=== PATIENT | female | born 1950 | race Caucasian/White ===

== ENCOUNTER → 2017-10-17 | Day surgery (SDC) | payer BC ==
[~2017-10-17] MED LIST: Propofol 200 MG/20 ML SDV IV ONE
[2017-10-17] MEDS: Lactated Ringers 1,000 ML IV SCH (08:07)
[2017-10-17 09:40] VITALS: BP 115/57
--- NOTE | 2017-10-17 10:48 | OR ---
DATE OF OPERATION: 10/17/2017 PREOPERATIVE DIAGNOSIS: CHRONIC GASTROESOPHAGEAL REFLUX DISEASE. POSTOPERATIVE DIAGNOSIS: CHRONIC GASTROESOPHAGEAL REFLUX DISEASE. SURGEON: Peña Chatman MD PROCEDURE: EGD WITH BIOPSIES X4, MINNIE. ANESTHESIA: TRADE EMBALMER due to chronic GERD. COMPLICATIONS: None. SPECIMEN: 1. Antral biopsy x2. 2. MINNIE. 3. Distal esophageal biopsy x2. FINDINGS: 1. Full-length EGD. 2. Minimal chronic appearing antral gastritis. 3. Mild hiatal hernia. 4. 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 RECOMMENDATIONS: The patient should consider proton pump therapy with her primary and close followup pending path report. If Spencer's changes seen on pathology, she will need a surveillance scope in 2 years. INDICATIONS: The patient has been having some worsening reflux over the last weeks. Dr. Nunez sent her for EGD. DESCRIPTION OF PROCEDURE: The patient was prepped and draped, placed in the left lateral decubitus position. A lubricated Olympus colonoscope was inserted and advanced to the cricopharyngeus area, easily intubated in the esophagus. Esophageal lining was benign in its entire course. The Z-line was crisp and sharp. There was around 3 o'clock position some short segment Spencer's changes associated with spontaneous reflux and hiatal hernia. Biopsy x2 of the leading edge were taken. The scope was advanced in the stomach through the pylorus and in the second portion of duodenum. This and the duodenal bulb were benign. The scope was brought back into the stomach and retroflexed. The upper fundus and cardia were unremarkable, easily visualized hernia from below. No signs of polyps, masses, or lesions in the stomach lining. There were some chronic gastritis changes of the distal antrum. Two biopsies were taken and a MINNIE test. Air was then suctioned. Scope was removed without complication. JANAE/CRICKET /[id number]
== END ==
LOC: CC.SDS 07:58
PROVIDERS: ATTEND Family Medicine
DX: K21.9 Gastro-esophageal reflux disease without esophagitis (principal); K29.50 Unspecified chronic gastritis without bleeding; K44.9 Diaphragmatic hernia without obstruction or gangrene; K22.70 Barrett's esophagus without dysplasia; J45.909 Unspecified asthma, uncomplicated; J18.9 Pneumonia, unspecified organism; M19.90 Unspecified osteoarthritis, unspecified site; M85.80 Other specified disorders of bone density and structure, unspecified site; E55.9 Vitamin D deficiency, unspecified; E78.5 Hyperlipidemia, unspecified; E04.1 Nontoxic single thyroid nodule; Z79.82 Long term (current) use of aspirin; Z79.899 Other long term (current) drug therapy
CPT/HCPCS: 87081; J2704; J7120

== ENCOUNTER 2024-04-10 11:09 | Emergency (ER) | payer BC ==
[2024-04-10] MEDS: Ketorolac 30 MG/ML SDV IM ONE (11:58)
[2024-04-10] MEDS: Orphenadrine 60 MG/2 ML Inj IM ONE (12:32)
[2024-04-10] MEDS: Take Home: Ketorolac 10 MG Tab, 4 Tab Pack PO ONE (12:35)
[2024-04-10] MEDS: Take Home: Cyclobenzaprine 10 MG Tab, 4 Tab Pack PO ONE (12:36)
[2024-04-10 14:50] VITALS: BP 152/73; PULSE 74
== END 2024-04-10 12:45 | disposition home or self-care (01) ==
LOC: CC.ED 11:09
DX: M62.838 Other muscle spasm (principal); Z79.82 Long term (current) use of aspirin; Z79.899 Other long term (current) drug therapy; Z88.1 Allergy status to other antibiotic agents; Z91.018 Allergy to other foods
CPT/HCPCS: 73030; 96372; 99283; A9270; J1885; J2360